=== PATIENT | male | born 1945 | race Caucasian/White ===

== ENCOUNTER 2019-12-15 13:53 | Emergency (ER) | payer MEDICARE, OTHER ==
--- NOTE | 2019-12-15 14:03 | EDM.PDOC ---
ED HPI GENERAL MEDICAL PROBLEM - General Stated Complaint: CHEST PAIN Time Seen by Provider: 12/15/19 14:00 Source of Information: Reports: Patient History Limitations: Reports: No Limitations - History of Present Illness INITIAL COMMENTS - FREE TEXT/NARRATIVE: 74-year-old male who reports onset of sharp right-sided chest pain on 12/11/2019 in the afternoon. He reports that it was after he had gone fishing and he was at home resting. He reports the pain was a sharp pain in his right upper parasternal chest. It was worse with movement and with deep breath and with cough. He states he has a chronic "tickle" type cough that has been present for quite some time. He did not have any known injury to the area. He has had no hemoptysis or shortness of breath. He reports that the pain has been continually present since its onset on 12/11/2019 but has seemed to get better and worse. He reports he got some relief with ibuprofen initially but none recently. Today after doing a bit of cleaning up between 10 am and noon, he developed worsening of the pain in his right chest and it seemed to move to his central, upper chest and was still a sharp pain. The pain is currently a 5/10. It was a little worse earlier up to maybe a 6-7/10. He has had no fevers. No chills. It is again worse with palpation, movement, deep breath. It does improve somewhat with rest. He has no neck, back, arm or jaw pain. There are no other associated signs or symptoms. There are no other modifying factors. Onset: Other (12/11/2019) Duration: Getting Worse Location: Reports: Chest Quality: Reports: Sharp Severity: Moderate Improves with: Reports: Rest Worsens with: Reports: Breathing, Other (Cough. Palpation.), Movement Context: Reports: Other (As above) Associated Symptoms: Reports: No Other Symptoms Treatments BACTERIOLOGIST PHARMACEUTICAL: Reports: NSAIDS (Ibuprofen) MID CHEST Pain Score (Numeric/FACES): 5 - Related Data Allergies Allergy/AdvReac Type Severity Reaction Status Date / Time lisinopril Allergy Cough Verified 12/15/19 15:04 pantoprazole [From Protonix] Allergy Shortness Verified 12/15/19 15:04 of Breath Home Meds: Home Meds Allopurinol [Zyloprim] 500 mg PO DAILY 12/15/19 [History] Meloxicam 15 mg PO DAILY 12/15/19 [History] Omeprazole 20 mg PO ACBREAKFAST 12/15/19 [History] amLODIPine Besylate [Amlodipine Besylate] 5 mg PO DAILY 12/15/19 [History] gemfibroziL [Gemfibrozil] 600 mg PO DAILY 12/15/19 [History] Past Medical History Cardiovascular History: Reports: Hypertension, Other (See Below) (Dyslipidemia) Gastrointestinal History: Reports: GERD Musculoskeletal History: Reports: Gout, Osteoarthritis - Past Surgical History GI Surgical History: Reports: Colonoscopy, EGD, Hernia, Inguinal (Right) Dermatological Surgical History: Reports: Other (See Below) (Pilonidal cystectomy) Social & Family History - Tobacco Use Smoking Status *Q: Former Smoker (Nonsmoker for the past 40 years.) - Alcohol Use Alcohol Use History: Yes Alcohol Use Frequency: Socially - Living Situation & Occupation Occupation: Retired (Previous sheet-metal riveter doing HVAC.) ED ROS GENERAL - Review of Systems Review Of Systems: See Below Constitutional: Reports: No Symptoms HEENT: Reports: No Symptoms Respiratory: Reports: No Symptoms Cardiovascular: Reports: Chest Pain Endocrine: Reports: No Symptoms GI/Abdominal: Reports: No Symptoms : Reports: No Symptoms Musculoskeletal: Reports: No Symptoms Skin: Reports: No Symptoms Neurological: Reports: No Symptoms Hematologic/Lymphatic: Reports: No Symptoms Immunologic: Reports: No Symptoms ED EXAM, GENERAL - Physical Exam Exam: See Below Exam Limited By: No Limitations General Appearance: Alert, WD/WN, No Apparent Distress Eye Exam: Bilateral Eye: EOMI, Normal Inspection, PERRL Ears: Normal External Exam, Hearing Grossly Normal Ear Exam: Bilateral Ear: Auricle Normal Nose: Normal Inspection, Normal Mucosa, No Blood Throat/Mouth: Normal Inspection, Normal Oropharynx, Normal Voice, No Airway Compromise Head: Atraumatic, Normocephalic Neck: Normal Inspection, Supple, Non-Tender, Full Range of Motion Respiratory/Chest: No Respiratory Distress, Lungs Clear, Normal Breath Sounds, No Accessory Muscle Use, Other (Tender over right upper parasternal and central chest. No crepitus or subcutaneous emphysema.) Cardiovascular: Normal Peripheral Pulses, Regular Rate, Rhythm, No JVD, No Murmur Peripheral Pulses: 2+: Radial (L), Radial (R), Dorsalis Pedis (L), Dorsalis Pedis (R) GI/Abdominal: Normal Bowel Sounds, Soft, Non-Tender, No Organomegaly, No Mass Back Exam: Normal Inspection Extremities: Normal Range of Motion, Non-Tender, Normal Capillary Refill, Pedal Edema (Trace bilateral) Neurological: Alert, Oriented, CN II-XII Intact, Normal Cognition, No Motor/ Sensory Deficits Psychiatric: Normal Affect Skin Exam: Warm, Dry, Intact, Normal Color, No Rash EKG INTERPRETATION EKG Date: 12/15/19 Time: 14:07 Rhythm: NSR Rate (Beats/Min): 64 [place]: Normal P-Wave: Present QRS: Normal ST-T: Other (Some nonspecific ST-T changes) QT: Normal Comparison: NA - No Prior EKG Course - Vital Signs Last Recorded V/S: Last Vital Signs Temp 36.5 C 12/15/19 13:55 Pulse 78 12/15/19 13:55 Resp 17 12/15/19 13:55 BP 172/94 H 12/15/19 13:55 Pulse Ox 100 12/15/19 13:55 - Orders/Labs/Meds Orders: Active Orders 24 hr Category Date Time Status EKG Documentation Completion [RC] ASDIRECTED Care 12/15/19 14:32 Active Chest 1V Frontal [CR] Stat Exams 12/15/19 14:31 Taken Sodium Chloride 0.9% [Saline Flush] Med 12/15/19 14:31 Active 10 ml FLUSH ASDIRECTED PRN Peripheral IV Insertion Adult [OM.PC] Routine Oth 12/15/19 14:31 Ordered EKG 12 Lead [EK] Routine Ther 12/15/19 14:31 Ordered Medication Orders Sodium Chloride (Saline Flush) 10 ml FLUSH ASDIRECTED PRN PRN Reason: Keep Vein Open Labs: Laboratory Tests 12/15/19 12/15/19 12/15/19 Range/Units 14:44 14:44 14:44 WBC 6.1 (4.5-12.0) X10-3/uL RBC 5.05 (4.30-5.75) x10(6)uL Hgb 14.0 (13.5-17.8) g/dL Hct 44.4 (30.0-51.3) % MCV 87.9 (80-96) fL MCH 27.8 (27.7-33.6) pg MCHC 31.6 L (32.2-35.4) g/dL RDW 13.3 (11.5-15.5) % Plt Count 326 (125-369) X10(3)uL MPV 8.6 (7.4-10.4) fL Neut % (Auto) 70.3 (46-82) % Lymph % (Auto) 17.4 (13-37) % [place] % (Auto) 7.5 (4-12) % Eos % (Auto) 4 (1.0-5.0) % Baso % (Auto) 0 (0-2) % Neut # (Auto) 4.2 (1.6-8.3) # Lymph # (Auto) 1.1 (0.6-5.0) # [place] # (Auto) 0.5 (0.0-1.3) # Eos # (Auto) 0.3 (0.0-0.8) # Baso # (Auto) 0.0 (0.0-0.2) # D-Dimer, Quantitative 0.31 (0.0-0.59) mg/LFEU Sodium 140 (135-145) mmol/L Potassium 3.9 (3.5-5.3) mmol/L Chloride 104 (100-110) mmol/L Carbon Dioxide 26 (21-32) mmol/L BUN 15 (7-18) mg/dL Creatinine 0.9 (0.70-1.30) mg/dL Est Cr Clr Drug Dosing TNP Estimated GFR (MDRD) > 60 (>60) BUN/Creatinine Ratio 16.7 (9-20) Glucose 89 (80-116) mg/dL Calcium 9.0 (8.6-10.2) mg/dL Magnesium (1.8-2.5) mg/dL Total Bilirubin 0.5 (0.1-1.3) mg/dL AST 22 (5-25) IU/L ALT 28 (12-36) U/L Alkaline Phosphatase 97 (56-112) IU/L Troponin I (4.0-60.3) pg/mL Total Protein 8.0 (6.0-8.0) g/dL Albumin 4.4 (3.2-4.6) g/dL Globulin 3.6 g/dL Albumin/Globulin Ratio 1.2 12/15/19 12/15/19 Range/Units 14:44 14:44 WBC (4.5-12.0) X10-3/uL RBC (4.30-5.75) x10(6)uL Hgb (13.5-17.8) g/dL Hct (30.0-51.3) % MCV (80-96) fL MCH (27.7-33.6) pg MCHC (32.2-35.4) g/dL RDW (11.5-15.5) % Plt Count (125-369) X10(3)uL MPV (7.4-10.4) fL Neut % (Auto) (46-82) % Lymph % (Auto) (13-37) % [place] % (Auto) (4-12) % Eos % (Auto) (1.0-5.0) % Baso % (Auto) (0-2) % Neut # (Auto) (1.6-8.3) # Lymph # (Auto) (0.6-5.0) # [place] # (Auto) (0.0-1.3) # Eos # (Auto) (0.0-0.8) # Baso # (Auto) (0.0-0.2) # D-Dimer, Quantitative (0.0-0.59) mg/LFEU Sodium (135-145) mmol/L Potassium (3.5-5.3) mmol/L Chloride (100-110) mmol/L Carbon Dioxide (21-32) mmol/L BUN (7-18) mg/dL Creatinine (0.70-1.30) mg/dL Est Cr Clr Drug Dosing Estimated GFR (MDRD) (>60) BUN/Creatinine Ratio (9-20) Glucose (80-116) mg/dL Calcium (8.6-10.2) mg/dL Magnesium 1.8 (1.8-2.5) mg/dL Total Bilirubin (0.1-1.3) mg/dL AST (5-25) IU/L ALT (12-36) U/L Alkaline Phosphatase (56-112) IU/L Troponin I 8.5 (4.0-60.3) pg/mL Total Protein (6.0-8.0) g/dL Albumin (3.2-4.6) g/dL Globulin g/dL Albumin/Globulin Ratio Meds: Medications Generic Name Dose Route Start Last Admin Trade Name Freq PRN Reason Stop Dose Admin Sodium Chloride 10 ml 12/15/19 14:31 Saline Flush FLUSH ASDIRECTED PRN Keep Vein Open Discontinued Medications Generic Name Dose Route Start Last Admin Trade Name Freq PRN Reason Stop Dose Admin Aspirin 324 mg 12/15/19 14:33 12/15/19 14:30 Aspirin PO 12/15/19 14:34 324 mg ONETIME ONE Administration - Radiology Interpretation Free Text/Narrative:: Portable chest x-ray shows no acute disease. - Re-Assessments/Exams Free Text/Narrative Re-Assessment/Exam: 12/15/19 16:10: His EKG showed no evidence of MA. His blood tests are reassuringly normal with a normal troponin and a normal d-dimer. With his pain ongoing continuously for the past 4 days, I feel this rules out MA. With the negative d-dimer makes pulmonary embolus extremely unlikely. His pain is reproducible in the right upper parasternal and sternal chest. I feel that this is most likely musculoskeletal type pain. It was noted that while he was here, when he continued to doze off his a rate did drop. We did not notice any definite in his pulse ox. However, it is possible this could represent obstructive sleep apnea. He tells me that he is supposed to be following up with Dr. Beasley in 1-2 weeks for a yearly physical. He should keep that appointment and he may need further outpatient workup in regard to the potential obstructive sleep apnea and also for this chest pain. Precautions and reasons for return to the emergency department were discussed with the patient while he was in the emergency department and were detailed in his discharge instructions. He is comfortable with plans for discharge. Departure - Departure Time of Disposition: 16:23 Disposition: Home, Self-Care 01 Condition: Good Clinical Impression: Atypical chest pain, Chest pain, musculoskeletal Instructions: Nonspecific Chest Pain, Adult, Chest Wall Pain, [id number], Nonspecific Chest Pain, Adult, [id number] Referrals: Philipp Beasley MD [Primary Care Provider] - Forms: ED Department Discharge Additional Instructions: Your blood tests were all reassuringly normal and specifically your heart enzyme test was normal and the blood clot screening test was normal as well. Your EKG showed no evidence of a heart attack. Your chest x-ray was normal. Your pain appears to be in the muscles and cartilage of your chest. You may continue to take ibuprofen 600 mg by mouth every 6 hours as needed for pain and Tylenol 1000 mg by mouth every 6 hours as needed for pain. You did appear to have a drop in your respiratory rate when you were resting and there is some concern that this could represent sleep apnea. You should definitely keep your appointment with Dr. Beasley for your physical and they need further outpatient testing in regard to possibility of obstructive sleep apnea and also to further check out your heart. Back to the emergency department for worsening chest pain , trouble breathing, neck, jaw or arm pain, unrelenting vomiting or any other concerning sign or symptom. Sepsis Event Note - Focused Exam Vital Signs: Vital Signs Temp Pulse Resp BP Pulse Ox 12/15/19 13:55 36.5 C 78 17 172/94 H 100 Date Exam was Performed: 12/15/19 Time Exam was Performed: 16:15 - My Orders Last 24 Hours: My Active Orders 12/15/19 14:31 Chest 1V Frontal [CR] Stat Sodium Chloride 0.9% [Saline Flush] 10 ml FLUSH ASDIRECTED PRN Peripheral IV Insertion Adult [OM.PC] Routine EKG 12 Lead [EK] Routine 12/15/19 14:32 EKG Documentation Completion [RC] ASDIRECTED - Assessment/Plan Last 24 Hours: My Active Orders 12/15/19 14:31 Chest 1V Frontal [CR] Stat Sodium Chloride 0.9% [Saline Flush] 10 ml FLUSH ASDIRECTED PRN Peripheral IV Insertion Adult [OM.PC] Routine EKG 12 Lead [EK] Routine 12/15/19 14:32 EKG Documentation Completion [RC] ASDIRECTED
[2019-12-15] MEDS ORDERED: Sodium Chloride 0.9% 10 ML Syringe FLUSH PRN (14:31)
[2019-12-15] MEDS ORDERED: Aspirin 81 MG Tab.Chew PO ONE (14:33)
--- NOTE | 2019-12-15 17:08 | CR ---
INDICATION: Chest pain. CHEST, ONE VIEW: An AP upright portable view of the chest 12/15/19 - no comparisons. Heart did not appear enlarged. The aorta is tortuous with minimal calcifications suggested in the arch. Overlying EKG leads are noted. A definite active infiltrate or effusion was not identified. Evidence of exogenous obesity is noted. IMPRESSION: No acute process. MTDD
== END 2019-12-15 16:36 | disposition home or self-care (01) ==
LOC: FB.ED 13:53
DX: R07.89 Other chest pain (principal); I10 Essential (primary) hypertension; K21.9 Gastro-esophageal reflux disease without esophagitis; M19.90 Unspecified osteoarthritis, unspecified site; Z79.899 Other long term (current) drug therapy; Z87.891 Personal history of nicotine dependence
CPT/HCPCS: 36415; 71045; 80053; 83735; 84484; 85025; 85379; 93005; 99285; A9270